=== PATIENT | female | born 1980 | race Two or more races ===

== ENCOUNTER → 2016-07-20 | Outpatient (CLI) | payer SELFPAY | LOC: RAD 15:00 | PROVIDERS: ATTEND Nurse Practitioner Women's Health | DX: Z34.81 Encounter for supervision of other normal pregnancy, first trimester (principal) | CPT/HCPCS: 76801 ==

== ENCOUNTER → 2016-09-08 | Outpatient (CLI) | payer SELFPAY ==
--- NOTE | 2016-09-08 15:17 | RADIOLOGY REPORT (SQ) ---
EXAM DESCRIPTION: U/S OB 14+ TRNABD 1GES W/O DOP COMPLETED DATE/TIME: 09/08/2016 3:03 pm REASON FOR STUDY: ENCOUNTER FOR SUPERVISION OF OTHER NORMAL , SECOND TRIMESTER Z34.82 ENCO UNTER FOR SUPRVSN OF NORMAL , SECOND TRI COMPARISON: 07/20/2016 TECHNIQUE: Static and Dynamic grayscale imaging performed of gravid uterus using transabdominal appr oach. Additional selected color Doppler and spectral images recorded. All stored on PACS. LIMITATIONS: Limited visualization of some anatomy. FINDINGS: EGA: 20 weeks 2 days AMY: 01/24/2017 EFW: 332 g PERCENTILE: Not applicable. Fetus less than or equal to 20 weeks gestation. CASEY: 10.0 PLACENTA: Posterior grade 1 PRESENTATION: Breech. ANATOMY: HEART RATE: 132 beats per minute. FOUR CHAMBER HEART: Not visualized. THREE VESSEL CORD: Yes. CORD INSERTION: Visualized. KIDNEYS AND BLADDER: Visualized. Appear normal. STOMACH: Visualized. Appears normal. SPINE: Normal as visualized. BRAIN AND LATERAL VENTRICLES: Limited visualization. OTHER: No other significant finding. MATERNAL ADNEXA: Maternal ovaries not visualized. CERVICAL LENGTH: Not imaged. OTHER: No other significant finding. IMPRESSION: LIVING INTRAUTERINE . ESTIMATED GESTATIONAL AGE 20 weeks 2 days NO VISUALIZED ANOMALIES. Trimester of : Second trimester - 13 weeks 1 day to 27 weeks 6 days. TECHNICAL DOCUMENTATION: JOB ID: [id number] [employer]- All Rights Reserved
== END ==
LOC: RAD 13:58
PROVIDERS: ATTEND Nurse Practitioner Women's Health
DX: Z34.82 Encounter for supervision of other normal pregnancy, second trimester (principal)
CPT/HCPCS: 76805

== ENCOUNTER → 2016-10-12 | Outpatient (CLI) | payer SELFPAY ==
--- NOTE | 2016-10-12 17:30 | RADIOLOGY REPORT (SQ) ---
EXAM DESCRIPTION: U/S OB 14+ TRNABD 1GES W/O DOP COMPLETED DATE/TIME: 10/12/2016 3:29 pm REASON FOR STUDY: ENCOUNTER FOR SUPERVISON OF OTHER NORMAL , SECOND TRIMESTER Z34.82 ENCOU NTER FOR SUPRVSN OF NORMAL , SECOND TRI COMPARISON: 09/08/2016 TECHNIQUE: Static and Dynamic grayscale imaging performed of gravid uterus using transabdominal appr oach. Additional selected color Doppler and spectral images recorded. All stored on PACS. LIMITATIONS: None. FINDINGS: EGA: 24 weeks 4 days AMY: 01/28/2017 EFW: 699 g PERCENTILE: 42nd percentile CASEY: 3.8 cm PLACENTA: Posterior PRESENTATION: Breech ANATOMY: HEART RATE: 128 beats per minute. FOUR CHAMBER HEART: Visualized. THREE VESSEL CORD: Yes. BRAIN AND LATERAL VENTRICLES: Visualized. Appear normal. MATERNAL ADNEXA: Maternal ovaries not visualized. CERVICAL LENGTH: 3 cm Closed. OTHER: No other significant finding. IMPRESSION: LIVING INTRAUTERINE . ESTIMATED GESTATIONAL AGE 24 weeks 4 days NO VISUALIZED ANOMALIES. Trimester of : Second trimester - 13 weeks 1 day to 27 weeks 6 days. TECHNICAL DOCUMENTATION: JOB ID: [id number] [employer]- All Rights Reserved
== END ==
LOC: RAD 14:29
PROVIDERS: ATTEND Nurse Practitioner Women's Health
DX: Z34.82 Encounter for supervision of other normal pregnancy, second trimester (principal)
CPT/HCPCS: 76805